=== PATIENT | male | born 1955 | race Caucasian/White ===

== ENCOUNTER 2018-05-09 13:22 | Outpatient (CLI) | payer BC, OTHER | END 2018-05-09 13:23 | disposition home or self-care (01) | LOC: SC 13:22 | PROVIDERS: ATTEND Internal Medicine Pulmonary Disease | DX: G47.10 Hypersomnia, unspecified (principal); R41.89 Other symptoms and signs involving cognitive functions and awareness; R06.81 Apnea, not elsewhere classified; R06.83 Snoring; G47.8 Other sleep disorders | CPT/HCPCS: 99203; 99212 ==

== ENCOUNTER 2018-06-05 20:14 | Outpatient (CLI) | payer OTHER | END 2018-06-05 20:15 | disposition home or self-care (01) | LOC: SC 20:14 | PROVIDERS: ATTEND Internal Medicine Pulmonary Disease | DX: G47.33 Obstructive sleep apnea (adult) (pediatric) (principal) | CPT/HCPCS: 95810 ==

== ENCOUNTER 2018-07-11 13:34 | Outpatient (CLI) | payer OTHER | END 2018-07-11 13:35 | disposition home or self-care (01) | LOC: SC 13:34 | PROVIDERS: ATTEND Nurse Practitioner Family | DX: G47.33 Obstructive sleep apnea (adult) (pediatric) (principal) | CPT/HCPCS: 99212; 99214 ==